=== PATIENT | female | born 1965 | race Caucasian/White ===

== ENCOUNTER 2016-12-16 09:24 | Day surgery (SDC) ==
[2016-12-16] MEDS ORDERED: LIDOCAINE 1% 20 ML MDV ONE (10:36)
[2016-12-16] MEDS ORDERED: LIDOCAINE 1% 20 ML MDV ID ONE (10:36)
[2016-12-16 10:45] LABS: URINE PREGNANCY INTERNAL QC INTERNAL QC VALID
[2016-12-16] MEDS ORDERED: VERSED ONE (11:47)
[2016-12-16] MEDS ORDERED: DIPRIVAN 20 ML VIAL IVP ONE (11:47)
[2016-12-16 12:49] VITALS: BP 119/84; TEMP 98.9
--- NOTE | 2016-12-17 12:53 | OP ---
INDICATIONS FOR PROCEDURE: 51-year-old female presents for her first ever screening colonoscopy. MEDICATIONS: SEE ANESTHESIA NOTES. PROCEDURE: COLONOSCOPY. REPORT: The risks, benefits, alternatives and limitations were discussed in detail with the patient. Informed consent was obtained. After adequate sedation was achieved, a digital rectal exam revealed good tone, no masses. The colonoscope was introduced into the rectum and advanced under direct visual guidance to the cecum. The cecum was identified by the appendiceal orifice and IC valve. I then slowly withdrew the scope in a circumferential manner examining the mucosa quite carefully. I looked on the proximal and distal side of folds and flexures as best as possible. I was able to retroflex the scope in the right colon and left colon to increase visualization. The colonic mucosa was unremarkable its entire length including on retrofflex views. The prep was good. The withdrawal time was 10 minutes and 52 seconds. The patient tolerated the procedure well with stable vital signs and pulse oximetry throughout. IMPRESSION: 1. Normal colonoscopy exam. RECOMMENDATIONS: 1. Office visit as needed. 2. Colon screening examination again in 10 years, sooner if there are any signs or symptoms to indicate otherwise. CC: DR. OSCAR URBANO
== END 2016-12-16 13:02 | disposition home or self-care (01) ==
LOC: SURG 09:24
PROVIDERS: ATTEND Internal Medicine Gastroenterology
DX: Z12.11 Encounter for screening for malignant neoplasm of colon (principal)
CPT/HCPCS: 81025

== ENCOUNTER 2018-02-10 10:43 | Outpatient (CLI) ==
--- NOTE | 2018-02-10 12:46 | DI ---
EXAM: Radiographs, right thumb HISTORY: Right thumb pain. COMPARISON: None available. TECHNIQUE: Three views. FINDINGS: Bone mineralization is normal. There is no fracture or dislocation. Mild joint space kan rowing and marginal osteophyte formation noted with the right. MCP joints with more moderate changes at the first CMC joint. No focal soft tissue abnormality is seen. IMPRESSION: Osteoarthritis.
== END 2018-02-10 10:44 | disposition home or self-care (01) ==
LOC: RAD 10:43
PROVIDERS: ATTEND Family Medicine
DX: M79.644 Pain in right finger(s) (principal)